=== PATIENT | male | born 1980 | race Caucasian/White ===

== ENCOUNTER 2020-04-18 16:07 | Emergency (ER) | payer SELFPAY ==
[2020-04-18] MEDS ORDERED: Metoclopramide HCl 10 MG TAB ONE (16:57)
[2020-04-18] MEDS ORDERED: diphenhydrAMINE 25 MG CAP ONE (16:57)
[2020-04-18] MEDS ORDERED: Amlodipine 5 MG TAB ONE (16:57)
[2020-04-18] MEDS ORDERED: traMADol HCl 50 MG TAB ONE (18:07)
--- NOTE | 2020-04-18 19:10 | CT ---
CT OF THE BRAIN WITHOUT CONTRAST: 04/18/[address] was done for evaluation of headache. The ventricles are normal in size with no shift . No intracranial bleeding or extra-axial hematoma was seen. There was no sign of mass, edema, or str margie. The visible paranasal sinuses are clear, as are the mastoid air cells. IMPRESSION: No acute intracranial findings. Preliminary report called to ER at 1653 on 04/18/20. POS: HOME
== END 2020-04-18 19:00 | disposition home or self-care (01) ==
LOC: BURERS 16:07
DX: I10 Essential (primary) hypertension (principal); E10.9 Type 1 diabetes mellitus without complications; Z79.899 Other long term (current) drug therapy
CPT/HCPCS: 36416; 70450; Q0163

== ENCOUNTER 2020-06-21 08:03 | Emergency (ER) | payer SELFPAY ==
[2020-06-21] MEDS ORDERED: Amlodipine 5 MG TAB ONE (08:42)
[2020-06-21] MEDS ORDERED: Ketorolac Tromethamine 30 MG/ML VIAL ONE (08:42)
[2020-06-21] MEDS ORDERED: Metoclopramide HCl 10 MG/2 ML VIAL ONE (08:42)
[2020-06-21 13:42] LABS: SARS-CoV-2 PCR by NAA Not Detected (NotDetected)
== END 2020-06-21 09:40 | disposition home or self-care (01) ==
LOC: BURERS 08:03
DX: B34.9 Viral infection, unspecified (principal); I10 Essential (primary) hypertension; E11.9 Type 2 diabetes mellitus without complications; Z20.822 Contact with and (suspected) exposure to COVID-19; Z79.899 Other long term (current) drug therapy; Z79.4 Long term (current) use of insulin
CPT/HCPCS: 87081; 87430; 87635; 87804; 96372; 99283; J1885; J2765; U0003; U0005

== ENCOUNTER 2020-06-22 08:33 | Emergency (ER) | payer SELFPAY ==
[2020-06-22 09:21] LABS: #Basophils 0.1 thou/uL (0.0-0.2); #Eosinphils 0.1 thou/uL (0.0-0.7); #Lymphocytes 1.7 thou/uL (1.20-3.40); #Monocytes 1.2 thou/uL (0.11-0.59); #Neutrophils 10.4 thou/uL (1.40-6.50); %Basophils 0.8 % (0.0-1.0); %Lymphocytes 12.5 % (21.0-51.0); %Monocytes 8.8 % (0.0-10.0); %Neutrophils 76.9 % (42.0-75.0); Hemoglobin 17.1 g/dL (14.0-18.0); Mean Corpuscular Hemoglobin 31.2 pg (27.0-31.0); Mean Corpuscular Volume 91.7 fL (78.0-98.0); Mean Platelet Volume 9.2 fL (7.4-10.4); Platelet Count 237 thou/uL (130-400); RBC Distribution Width 12.1 % (11.5-14.5); Red Blood Cell (RBC) Count 5.48 mill/uL (4.70-6.10); White Blood Cell (WBC) Count 13.6 thou/uL (4.8-10.8)
[2020-06-22 09:33] LABS: Bilirubin, Total 0.4 mg/dL (0.2-1.2); Calcium 9.4 mg/dL (7.8-10.44); Chloride 101 mmol/L (98-107); Potassium 4.2 mmol/L (3.5-5.1); Sodium 137 mmol/L (136-145)
[2020-06-22] MEDS ORDERED: Sodium Chloride 0.9% 0 ML ONE (09:36)
[2020-06-22] MEDS ORDERED: Sodium Chloride 0.9% 100 ML ONE (09:36)
[2020-06-22] MEDS ORDERED: cefTRIAXone\\ROCEPHIN 1 GM VIAL ONE (09:36)
[2020-06-22 09:42] LABS: Base Excess-Venous 1.2 mmol/L (-2.0 to 3.0); Bicarbonate (HCO3v) 22.5 mmol/L (22.0-28.0); CO2 Tension (PvCO2) 27.7 mmHg (42.0-51.0); Calcium, Ionized 1.02 mmol/L (1.15-1.33); Chloride 101 mmol/L (98-107); Hemoglobin - Calc 17.7 g/dL (14.0-18.0); Potassium 3.9 mmol/L (3.5-5.1); Sodium 133 mmol/L (138-145); T. Carbon Dioxide 23.4 mmol/L (22.0-28.0); vO2 Saturation-calc 98.8 % (60.0-85.0)
[2020-06-22 09:46] LABS: ALT (SGPT) 39 U/L (8-55); AST (SGOT) 15 U/L (5-34); Albumin 4.4 g/dL (3.5-5.0); Alkaline Phosphatase 131 U/L (40-110); BUN (Urea Nitrogen) 9 mg/dL (8.9-20.6); Calc. Creatinine Clearance 0 mL/min (70-130); Carbon Dioxide 21 mmol/L (22-29); Globulin 3.1 g/dL (2.4-3.5); Glucose 344 mg/dL (70-105); Lipase 27 U/L (8-78); Protein, Total 7.5 g/dL (6.0-8.3)
[2020-06-22 09:48] LABS: Anion Gap 19 mmol/L (10-20)
[2020-06-22] MEDS ORDERED: Metoclopramide HCl 10 MG/2 ML VIAL ONE (10:09)
[2020-06-22 10:16] LABS: Bilirubin Negative (Negative); Blood, Urine Negative (Negative); Clarity Clear (Clear); Glucose, Urine (Dipstick) 500 mg/dL (Negative); Ketone, Urine 40 mg/dL (Negative); Leukocyte Negative (Negative); Nitrite Negative (Negative); Protein, Urine (Dipstick) Trace mg/dL (Neg-Trace); Specific Gravity, Urine 1.015 (1.005-1.030); Urobilinogen 0.2 mg/dL (Less than 2)
[2020-06-22] MEDS ORDERED: Morphine 4 MG/ML VIAL ONE (11:53)
[2020-06-22] MEDS ORDERED: Amlodipine 5 MG TAB ONE (12:31)
== END 2020-06-22 12:44 | disposition home or self-care (01) ==
LOC: BURERS 08:33
DX: B34.9 Viral infection, unspecified (principal); I10 Essential (primary) hypertension; E11.9 Type 2 diabetes mellitus without complications; Z79.4 Long term (current) use of insulin; Z79.899 Other long term (current) drug therapy
CPT/HCPCS: 36416; 71046; 71250; 80053; 81003; 82330; 82803; 83605; 83690; 83880; 84484; 85014; 85025; 87040; 96374; 96375; J0696; J2270; J2765; J3490; J7050; J7620

== ENCOUNTER → 2020-11-08 | Emergency (ER) | payer SELFPAY | LOC: BURERS 18:16 | DX: M25.561 Pain in right knee (principal); E11.9 Type 2 diabetes mellitus without complications; I10 Essential (primary) hypertension; Z79.899 Other long term (current) drug therapy; Z79.4 Long term (current) use of insulin | CPT/HCPCS: 99281 ==

== ENCOUNTER 2023-02-16 06:12 | Emergency (ER) | payer SELFPAY ==
[2023-02-16 06:44] LABS: #Basophils 0.1 thou/uL (0.0-0.2); #Eosinphils 0.1 thou/uL (0.0-0.7); #Lymphocytes 1.4 thou/uL (1.20-3.40); #Monocytes 0.7 thou/uL (0.11-0.59); #Neutrophils 5.9 thou/uL (1.40-6.50); %Basophils 1.2 % (0.0-1.0); %Eosinophils 1.5 % (0.0-10.0); %Lymphocytes 17.6 % (21.0-51.0); %Monocytes 8.1 % (0.0-10.0); %Neutrophils 71.7 % (42.0-75.0); Hematocrit 46.6 % (42.0-52.0); Hemoglobin 15.7 g/dL (14.0-18.0); Mean Corpuscular HGB CONC 33.6 g/dL (32.0-36.0); Mean Corpuscular Hemoglobin 30.7 pg (27.0-31.0); Mean Corpuscular Volume 91.4 fl (78.0-98.0); Mean Platelet Volume 10.2 fL (7.4-10.4); Platelet Count 180 10x3/uL (130-400); RBC Distribution Width 11.1 % (11.5-14.5); White Blood Cell (WBC) Count 8.2 10x3/uL (4.8-10.8)
[2023-02-16] MEDS ORDERED: Meclizine HCl 25 MG TAB ONE (06:49)
[2023-02-16] MEDS ORDERED: Ondansetron PF 4 MG/2 ML Vial ONE ×2 (06:49→07:30)
[2023-02-16 07:01] LABS: ALT (SGPT) 30 U/L (8-55); AST (SGOT) 16 U/L (5-34); Albumin 4.1 g/dL (3.5-5.0); Alkaline Phosphatase 171 U/L (40-110); Anion Gap 17 mmol/L (10-20); BUN (Urea Nitrogen) 10 mg/dL (8.9-20.6); Bilirubin, Total 0.4 mg/dL (0.2-1.2); Calc. Creatinine Clearance 0 mL/min (70-130); Calcium 9.2 mg/dL (7.8-10.44); Carbon Dioxide 24 mmol/L (22-29); Chloride 97 mmol/L (98-107); Estimated GFR 90; Globulin 3.3 g/dL (2.4-3.5); Potassium 3.6 mmol/L (3.5-5.1); Protein, Total 7.4 g/dL (6.0-8.3); Sodium 134 mmol/L (136-145); Troponin I 0.102 ng/mL (< 0.028)
[2023-02-16 07:06] LABS: Glucose 456 mg/dL (70-105)
[2023-02-16] MEDS ORDERED: hydrALAZINE 20 MG/ML VIAL ONE (07:27)
[2023-02-16] MEDS ORDERED: Aspirin Chewable 81 MG TAB ONE (07:30)
[2023-02-16] MEDS ORDERED: diphenhydrAMINE 50 MG/ML VIAL ONE (07:36)
[2023-02-16] MEDS ORDERED: Metoclopramide HCl 10 MG (2 mL) VIAL ONE (07:36)
[2023-02-16] MEDS ORDERED: Acetaminophen 500 MG TAB ONE ×2 (08:19→17:47)
[2023-02-16] MEDS ORDERED: Amlodipine 5 MG TAB ONE (08:19)
[2023-02-16] MEDS ORDERED: HumuLIN 70/30 100 Unit/ ml 10 ml Vial SC SCH (09:00)
[2023-02-16 10:08] LABS: Troponin I 0.108 ng/mL (< 0.028)
== END 2023-02-16 20:25 | disposition short-term general hospital (02) ==
LOC: BURERS 06:12
DX: I10 Essential (primary) hypertension (principal); E11.8 Type 2 diabetes mellitus with unspecified complications; R42 Dizziness and giddiness; R79.89 Other specified abnormal findings of blood chemistry
CPT/HCPCS: 36415; 36416; 70450; 71045; 80053; 84484; 85025; 93005; 96361; 96374; 96375; J0360; J1200; J2405; J2765